=== PATIENT | female | born 1970 | race African-American/Black ===

== ENCOUNTER 2017-01-20 12:34 | Emergency (ER) | payer SELFPAY ==
--- NOTE | 2017-01-20 12:47 | EDM.PDOC ---
ED HPI GENERAL MEDICAL PROBLEM - General Chief Complaint: General Stated Complaint: TOOTH ACHE Time Seen by Provider: 01/20/17 12:47 Source of Information: Reports: Patient History Limitations: Reports: No limitations - History of Present Illness INITIAL COMMENTS - FREE TEXT/NARRATIVE: HISTORY AND PHYSICAL: History of present illness: [Comes to the ER complaining of left upper dental pain. Has had pain on and off for the past 4-5 months but intensified last night. She was unable to sleep due to the pain. She denies having fever and chills. She's had some left neck pain over her lymph nodes for the past couple of days. She denies drainage from her teeth. Admits to pain, and swelling. Has not used any [id number] treatments for her discomfort. She lives in [place] but is currently visiting family in the [facility]. Plans to be here for the next 2-1/2 to 3 weeks.] Review of systems: As per history of present illness and below otherwise all systems reviewed and negative. Past medical history: As per history of present illness and as reviewed below otherwise noncontributory. Surgical history: As per history of present illness and as reviewed below otherwise noncontributory. Social history: No reported history of drug or alcohol abuse. Family history: As per history of present illness and as reviewed below otherwise noncontributory. Physical exam: HEENT: Atraumatic, normocephalic. Mild swelling and tenderness over her left upper cheek. Oral mucous membranes are pink and moist. No tonsillar swelling erythema or exudate. Nares are patent. Gums are swollen and erythematous to teeth #13, 14, 15 and 16. These teeth appear decayed. Mildly shotty left anterior cervical lymph node, mildly tender. Lungs: Clear to auscultation, breath sounds equal bilaterally, chest nontender. Heart: S1S2, regular, negative for clicks, rubs, or JVD. Genitourinary: Deferred. Rectal: Deferred. Extremities: Atraumatic, without deformity. Full range of motion to all 4 extremities. Neurovascular unremarkable. Neuro: Awake, alert, oriented. Exam nonfocal. Therapeutics: Dental balls Impression: [Dental pain] Plan: [Prescriptions are written for: [place] 5/325 mg #7 sig one by mouth each bedtime zero refills, and amoxicillin 500 mg #30 one by mouth 3 times a day x10 days no refills. Urged patient to phone a dentist in town today to schedule an appointment for when she returns home. We discussed that the hydrocodone is only to be used at bedtime and she should use Tylenol and ibuprofen during the day. Dental balls are given in the ER. If she continues to have pain and problems while in [place] recommend she see a local dentist. All questions are answered and concerns are addressed.] Definitive disposition and diagnosis as appropriate pending reevaluation and review of above. dental right Pain Score (Numeric/FACES): 9 - Related Data Allergies Allergy/AdvReac Type Severity Reaction Status Date / Time No Known Allergies Allergy Verified 01/20/17 12:45 Home Meds: Home Meds Propranolol [Inderal] PO DAILY 01/20/17 [History] ED ROS GENERAL - Review of Systems Review Of Systems: ROS reveals no pertinent complaints other than HPI. ED EXAM, GENERAL - Physical Exam Exam: See Below Course - Vital Signs Last Recorded V/S: Last Vital Signs Temp 97.9 F 01/20/17 12:46 Pulse 91 01/20/17 12:46 Resp 18 01/20/17 12:46 BP 189/100 H 01/20/17 12:46 Pulse Ox 100 01/20/17 12:46 - Orders/Labs/Meds Meds: Medications Discontinued Medications Generic Name Dose Route Start Last Admin Trade Name Farida PRN Reason Stop Dose Admin Benzocaine 2 each 01/20/17 12:58 Hurricaine One 20% MUCMEM 01/20/17 12:59 ONETIME ONE Lidocaine HCl 15 ml 01/20/17 12:58 Xylocaine 2% Viscous PO 01/20/17 12:59 ASDIRECTED STA Departure - Departure Time of Disposition: 13:00 Disposition: Home, Self-Care 01 Condition: good Clinical Impression: Pain, dental Referrals: PCP,None [Primary Care Provider] - Forms: ED Department Discharge Additional Instructions: The following information is given to patients seen in the emergency department who are being discharged to home. This information is to outline your options for follow-up care. We provide all patients seen in our emergency department with a follow-up referral. The need for follow-up, as well as the timing and circumstances, are variable depending upon the specifics of your emergency department visit. If you don't have a primary care physician on staff, we will provide you with a referral. We always advise you to contact your personal physician following an emergency department visit to inform them of the circumstance of the visit and for follow-up with them and/or the need for any referrals to a consulting specialist. The emergency department will also refer you to a specialist when appropriate. This referral assures that you have the opportunity for follow-up care with a specialist. All of these measure are taken in an effort to provide you with optimal care, which includes your follow-up. Under all circumstances we always encourage you to contact your private physician who remains a resource for coordinating your care. When calling for follow-up care, please make the office aware that this follow-up is from your recent emergency room visit. If for any reason you are refused follow-up, please contact the [facility] emergency department at and asked to speak to the emergency department charge nurse. [facility] [address] [place] [id number] Call today to schedule with a dentist for when you return home. Take ibuprofen 200 mg 3 tablets every 6 hours with food, alternating with Tylenol 2 tablets as needed for pain. Use dental balls as needed for discomfort. Take hydrocodone only at bedtime. Take antibiotics exactly as prescribed. Return to ER as needed and as discussed.
[2017-01-20] MEDS ORDERED: Benzocaine 20% Topical Spray UD MUCMEM ONE (12:58)
[2017-01-20] MEDS ORDERED: Lidocaine 2% Viscous Solution 15 ML Cup PO STA (12:58)
[2017-01-20 13:18] VITALS: BP 189/100
== END 2017-01-20 13:13 | disposition home or self-care (01) ==
LOC: MW.ED 12:34
DX: K08.9 Disorder of teeth and supporting structures, unspecified (principal); M54.2 Cervicalgia; Z79.899 Other long term (current) drug therapy
CPT/HCPCS: 99282; 99283